=== PATIENT | male | born 1980 | race Caucasian/White ===

== ENCOUNTER 2018-06-02 16:34 | Emergency (ER) | payer OTHER ==
[~2018-06-02] VITALS: Ht 170.2 cm; Wt 96.2 kg
[2018-06-02 16:57] VITALS: BP 120/95
--- NOTE | 2018-06-02 17:30 | NUR ---
PT AMBULATED TO ER BED 05
[2018-06-02] MEDS ORDERED: ONDANSETRON 4 MG ODT PO ONE (17:55)
[2018-06-02] MEDS ORDERED: PANTOPRAZOLE 40 MG INJ VIAL IVP ONE (17:55)
[2018-06-02] MEDS ORDERED: NACL 0.9% 500 ML IV ONE (17:55)
[2018-06-02 18:22] LABS: BASOPHILS % (AUTO) 0.3 % (0.0-2.0); EOSINOPHILS # (AUTO) 0.1 K/uL (0-0.4); EOSINOPHILS % (AUTO) 0.6 % (0.0-4.0); HEMATOCRIT 43.3 % (36-52); HEMOGLOBIN 14.5 g/dL (12.0-18.0); LYMPHOCYTES # (AUTO) 2.4 K/uL (2.0-11.5); LYMPHOCYTES % (AUTO) 23.3 % (20.5-51.1); MEAN CORPUSCULAR HEMOGLOBIN 31 pg (27-31); MEAN CORPUSCULAR HGB CONC 34 g/dL (33-37); MONOCYTES % (AUTO) 9.2 % (1.7-9.3); NEUTROPHILS % (AUTO) 66.6 % (42.2-75.2); PLATELET COUNT (AUTO) 355 K/uL (140-450); RED BLOOD CELL COUNT(AUTO) 4.77 MIL/uL (4.20-6.10); RED CELL DISTRIBUTION WIDTH 12.9 % (11.6-13.7); WHITE BLOOD COUNT (AUTO) 10.5 K/uL (4.8-10.8)
== END 2018-06-02 18:48 | disposition home or self-care (01) ==
LOC: MED 16:34
DX: A08.4 Viral intestinal infection, unspecified (principal)
CPT/HCPCS: 36415; 81002; 85025; 96374; 99283; C9113; Q0162

== ENCOUNTER 2018-08-18 15:45 | Emergency (ER) | payer OTHER ==
[~2018-08-18] VITALS: Ht 170.2 cm; Wt 92.6 kg
[2018-08-18 15:48] VITALS: BP 132/92
--- NOTE | 2018-08-18 15:53 | NUR ---
Patient ambulated to bed 5. RN evaluating patient at bedside.
--- NOTE | 2018-08-18 15:58 | NUR ---
37 Y MALE BIB SELF C/O DIARRHEA X1 DAY. PT REPORTS 4 EPISODES OF CLEAR/RENDON WATERY DIARRHEA IN PAST 24 HOURS. +NAUSEA AND FEVER. NO FEVER AT THIS TIME. - VOMITING. PT REPORTS EATING CHINESE FOOD FROM [employer] LAST NIGHT NIGHT AND THINKS IT MIGHT BE THAT. PT DENIES PAIN AT THIS TIME. VSS. PT [id number]. BED IS DOWN, LOCKED, BED RAIL X 1, ERMD TO SEE PT. MEDHX:DENIES RX:DENIES
--- NOTE | 2018-08-18 16:55 | NUR ---
DR MATHEW AT BEDSIDE FOR PT EVALUATION
--- NOTE | 2018-08-18 17:06 | NUR ---
Patient discharged with v/s stable by dr eduardo. Written and verbal after care instructions given and explained. Patient verbalized understanding. Ambulatory with steady gait. All questions addressed prior to discharge. Advised to follow up with PMD.
== END 2018-08-18 17:06 | disposition home or self-care (01) ==
LOC: MED 15:45
DX: R19.7 Diarrhea, unspecified (principal); R11.0 Nausea
CPT/HCPCS: 99281